=== PATIENT | female | born 1945 | race Caucasian/White ===

== ENCOUNTER 2016-12-18 16:32 | Observation (INO) | payer MEDICARE ==
[~2016-12-18] VITALS: Ht 160 cm; Wt 92.3 kg
[2016-12-18 16:39] VITALS: BP 134/83; PULSE 65; RESP 15; O2SAT 100
--- NOTE | 2016-12-18 16:48 | ED.REPORT ---
HPI-Chest Pain 40 and Over Date of Service Dec 18, 2016 ED Provider: Steven Dobson MD Patient is a 71 year old female with a history of diabetes who presents to the ED complaining of intermittent chest aching for the past 3 days. She denies shortness of breath, diaphoresis, nausea, palpitations or radiating pain. The patient states that the pain gradually came on and is exacerbated with exertion. She describes the pain as a mild ache. Patient was seen at , where she received ASA and was referred to the ED. Nursing Notes Stated Complaint: CHEST PAIN/ SENT FROM URGENT CARE Chief Complaint: Chest Pain Nursing Notes Reviewed: Yes Allergies: Coded Allergies: No Known Allergies (Unverified , 12/18/16) Scheduled Aspirin (Aspirin) 81 Mg Tablet 81 MG PO HS Atenolol (Atenolol) 25 Mg Tablet 25 MG PO DAILY Fluoxetine (Fluoxetine) 20 Mg Capsule 40 MG PO DAILY Glipizide (Glipizide) 5 Mg Tablet 5 MG PO DAILY Lisinopril (Lisinopril) 10 Mg Tablet 10 MG PO DAILY Magnesium Oxide (Magnesium Oxide) 250 Mg Tablet 500 MG PO HS Metformin (Metformin) 500 Mg Tablet 250 MG PO DAILY Omeprazole (Omeprazole) 20 Mg Tablet.dr 20 MG PO HS Simvastatin (Simvastatin) 20 Mg Tablet 20 MG PO HS Trazodone (Trazodone) 100 Mg Tablet 100 MG PO HS General Time Seen by MD: 16:47 Chief Complaint Chest aching Hx Obtained From: Patient Arrived By: Walk-in Sudden in Onset?: No Onset Occurred: 3 days ago Symptom Duration: Intermittent Location: : Substernal Quality: Aching Radiation: : Does not radiate Migration/Movement: Reports: None Severity: Current: Mild Recent Healthcare: Recent doctor visit Risk Factors )( CAD Risk Stratification Diabetes mellitus Family history Hyperlipidemia Smoking (former)No Amphetamine , No Cocaine Risk factors reviewed HEART Score HEART for MACE: Mod index of susp (1), Normal ECG (0), Age 65 or over (2), 1-2 CAD risk factors (1) HEART for MACE Score: 4-7 (mod risk 12%-16.6%) PERC Rule Age 50 or over Past Medical History Past Medical History Reports: Diabetes mellitus Family History CAD Smoking History Former Smoker Social History Other Social History: Good social support, , From out of town, Visiting locally Ambulatory Status Independent Review of Systems Constitutional: Denies: Chills, Fever Respiratory: Denies: Non-productive cough, Shortness of breath Cardiovascular: Reports: Chest pain, Denies: Palpitations GI: Denies: Nausea Musculoskeletal: Denies: Back pain, Extremity pain, Neck pain Skin: Denies Diaphoresis, Denies Itching, Denies Rash Neurologic: Denies: Lightheaded, Numbness, Weakness Complete sys rev & neg: except as marked. Physical Exam Initial Vital Signs Vital Signs (First) Date Time Temp Pulse Resp B/P Pulse Ox O2 Delivery O2 Flow Rate FiO2 12/18/16 16:39 37.1 65 15 134/83 100 Room Air Initial VS: Reviewed General/Constitutional: Awake, Alert, No acute distress Respiratory / Chest: Atraumatic, Breath sounds NL, Breath sounds = bilat, No respiratory distress Cardiovascular: Heart rate NL, Regular rhythm, Heart sounds NL Abdomen: Atraumatic, Soft, Non-tender Lower Extremity / Pelvis / MS: Atraumatic, No edema Skin: Atraumatic, Color NL, No rash, Warm, Dry Neurologic: Oriented X3, Speech NL Psychiatric: Affect NL, Mood NL Head / Eyes: Atraumatic, Normocephalic, PERRL, EOMI Interpretation & Diagnostics Lab Results Interpretation Result Diagram: 12/18/16 1654 12/18/16 1654 Test 12/18/16 16:54 12/18/16 18:50 White Blood Count 7.1th/mm3 (3.8-10.1) Red Blood Count 4.73mil/mm3 (3.90-5.20) Hemoglobin 14.2g/dL (12.0-15.6) Hematocrit 43.3% (35.0-46.0) Mean Corpuscular Volume 91.5fL (81-100) Mean Corpuscular Hemoglobin 30.0pg (27.0-35.0) Mean Corpuscular Hemoglobin Concent 32.8% (32.0-37.0) Red Cell Distribution Width 12.7% (12.3-15.4) Platelet Count 200bil/L (150-400) Neutrophils (%) (Auto) 51.4% (40-74) Lymphocytes (%) (Auto) 33.1% (14-46) Monocytes (%) (Auto) 11.8% (4-12) Eosinophils (%) (Auto) 3.1% (0-5) Basophils (%) (Auto) 0.3% (0-3) Sodium Level 138mEq/L (134-144) Potassium Level 4.7mEq/L (3.5-5.2) Chloride Level 103mEq/L (97-108) Carbon Dioxide Level 20mmol/L (18-29) Blood Urea Nitrogen 18mg/dL (8-27) Creatinine 0.66mg/dL (0.57-1.00) Estimat Glomerular Filtration Rate 127mL/min (>59) Glucose Level 123mg/dL (60-99) Calcium Level 9.5mg/dL (8.5-10.1) Magnesium Level 2.1mg/dL (1.6-2.6) Total Bilirubin 0.4mg/dL (0.0-1.2) Aspartate Amino Transf (AST/SGOT) 19U/L (0-50) Alanine Aminotransferase (ALT/SGPT) 14U/L (0-32) Alkaline Phosphatase 106U/L (25-165) Troponin T < 0.010ug/L (0.0-0.011) Total Protein 6.6g/dL (6.4-8.4) Albumin 4.2g/dL (3.4-5.0) ECG Interpretation Time: 17:13 Interpreted by: ED physician Normal ECG Interpretation: Normal rate (62), Normal sinus rhythm X-Ray Chest Interpretation Chest Xray Interpretation: IMPRESSION: Acute disease is not seen in the upright portable chest. Cause of chest discomfort is not identified. Dictated by: Nasim Jeff M.D. on 12/18/2016 at 17:15 Approved by: Nasim Jeff M.D. on 12/18/2016 at 17:16 View: Portable, 1 view Interpretation / Wet Read by: Interpret - Radiologist Re-Eval/Medical Decision Time of Eval: 18:13 Re-Evaluation/Progress Note: Discussed results and plan to admit. Patient understands and agrees to plan. All questions were addressed. Consultation : Referral / Consult Name: Quentin Kramer MD Consulted With: Hospitalist Call Returned at: 19:20 Traffic Operator: Agrees with eval, Agrees with plan, Accepts admit Counseled Regarding: Diagnosis, Lab results, Need for admission Discharge & Departure Primary Impression: Chest pain Chest pain type: unspecified Qualified Code: R07.9 - Chest pain, unspecified Disposition: ADMITTED TO HOSPITAL Discharge Condition All VS Reviewed: Yes Condition: Stable Scribe Attestation Portions of this note were transcribed by Margareth Crisostomo. I, Dr. Dobson personally performed the history, physical exam and medical decision-making; I reviewed and confirmed the accuracy of the information in the transcribed note. Signed by: Xin Bishop, 12/18/16 Steven Dobson MD Dec 18, 2016 16:48 Zunilda Crisostomo Dec 18, 2016 17:00
[2016-12-18 16:56] LABS: BASOPHILS % (AUTO) 0.3 % (0-3); EOSINOPHILS % (AUTO) 3.1 % (0-5); MONOCYTES % (AUTO) 11.8 % (4-12); Mean Corpuscular Volume 91.5 fL (81-100); NEUTROPHILS % (AUTO) 51.4 % (40-74); Platelet Count 200 bil/L (150-400)
--- NOTE | 2016-12-18 17:18 | DRSVH ---
PROCEDURE: X-RAY CHEST ONE VIEW, PORTABLE ([id number]) INDICATIONS: chest pain TECHNIQUE: One view of the chest was acquired. COMPARISON: None. FINDINGS: Surgical changes and devices: food assembler leads are seen over the chest. Lungs and pleura: No pleural effusions or pneumothorax. Lungs are clear. There is some elevation o f the right hemidiaphragm. Mediastinum: Mediastinal contours appear normal. Heart size is normal. Bones and chest wall: No suspicious bony lesions. Overlying soft tissues appear unremarkable. IMPRESSION: Acute disease is not seen in the upright portable chest. Cause of chest discomfort is not identified. Dictated by: Nasim Jeff M.D. on 12/18/2016 at 17:15 Approved by: Nasim Jeff M.D. on 12/18/2016 at 17:16
[2016-12-18 17:19] LABS: TROPONIN T < 0.010 ug/L (0.0-0.011)
[2016-12-18 17:24] VITALS: BP 115/67; PULSE 64; RESP 16; O2SAT 96
[2016-12-18] MEDS ORDERED: Heparin 25K Unit/500mL 0.45 NS 25,000 UNIT in IV Premix 1 EACH IV SCH (18:20)
[2016-12-18] MEDS ORDERED: Heparin 5,000 Unit/mL Inj IVPUSH PRN (18:20)
[2016-12-18] MEDS ORDERED: Heparin 5,000 Unit/mL Inj IVPUSH ONE (18:20)
[2016-12-18 18:46] LABS: Magnesium 2.1 mg/dL (1.6-2.6)
[2016-12-18 19:10] VITALS: BP 126/60; PULSE 64; RESP 16; O2SAT 96
[2016-12-18] MEDS ORDERED: TRAZ-118 PO (19:13)
[2016-12-18] MEDS ORDERED: ATEN25TA PO (19:13)
[2016-12-18] MEDS ORDERED: FLUO20CA25 PO (19:13)
[2016-12-18] MEDS ORDERED: METF500T4 PO (19:13)
[2016-12-18] MEDS ORDERED: GLPZ5T PO (19:13)
[2016-12-18] MEDS ORDERED: LISI10TA PO (19:13)
[2016-12-18] MEDS ORDERED: SIMV20TA4 PO (19:13)
[2016-12-18] MEDS ORDERED: OMEP20TA86 PO (19:28)
[2016-12-18] MEDS ORDERED: MAGN250T37 PO (19:29)
[2016-12-18] MEDS ORDERED: ASPI-973 PO (19:29)
[2016-12-18] MEDS ORDERED: Polyethylene Glycol (PEG) 17 Gm Powder PO PRN (19:30)
[2016-12-18] MEDS ORDERED: Alum-Mag Hydrox-Simeth 30 mL Suspension PO PRN (19:30)
[2016-12-18] MEDS ORDERED: Ondansetron 2 mg/mL 2 mL Inj IVPUSH PRN (19:30)
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
[2016-12-18 20:17] VITALS: BP 154/77; PULSE 58; RESP 20; O2SAT 98
[2016-12-18] MEDS ORDERED: Famotidine Inj 20 MG in IV Premix 1 EACH IV SCH (20:30)
[2016-12-18] MEDS ORDERED: Glucose 40% Oral Gel 15 Gm Tube PO PRN (20:35)
[2016-12-18 20:46] VITALS: PULSE 59
[2016-12-18] MEDS ORDERED: Dextrose 10% 250 ML IV PRN (20:50)
[2016-12-18 21:55] LABS: APPEARANCE,URINE HAZY (CLEAR,HAZY); COLOR,URINE YELLOW (YELLOW)
[2016-12-18 21:56] LABS: OCCULT BLOOD,URINE NEGATIVE (NEGATIVE); UROBILINOGEN,URINE NORMAL (NORMAL)
[2016-12-18] MEDS: Insulin LISPRO 300 Unit/3 mL Inj SUBQ SCH (22:00)
[2016-12-18] MEDS: Pantoprazole 20 mg ER24 Tablet PO SCH (22:10)
--- NOTE | 2016-12-18 23:31 | NUR ---
Admit note: Pt arrived to the floor in [facility] from ER. While on the gurney in the [place] reported 5/10 chest pain which increased with deep breathing and "feels like a bruise". Declined Morphine, pain subsided on own by the time pt transferred to her bed and has been pain free since. Alert and oriented x3. Tele SR 60s. Plan of care and call light use explained to pt.
[2016-12-19] MEDS ORDERED: Heparin 5,000 Unit/mL Inj SUBQ SCH (00:30)
[2016-12-19] MEDS: Heparin 5,000 Unit/mL Inj SUBQ SCH ×3 (02:24→16:28)
[2016-12-19 02:28] VITALS: BP 127/72; PULSE 60; RESP 18; O2SAT 96
[2016-12-19 05:42] LABS: BASOPHILS % (AUTO) 0.5 % (0-3); EOSINOPHILS % (AUTO) 4.1 % (0-5); Mean Corpuscular Hemoglobin 29.6 pg (27.0-35.0); Mean Corpuscular Volume 91.2 fL (81-100); NEUTROPHILS % (AUTO) 47.7 % (40-74); Platelet Count 154 bil/L (150-400)
[2016-12-19 06:17] LABS: TROPONIN T 0.01 ug/L (0.0-0.011)
[2016-12-19 06:28] LABS: Magnesium 2.1 mg/dL (1.6-2.6)
[2016-12-19 06:50] VITALS: BP 147/70; PULSE 59; RESP 20; O2SAT 96
[2016-12-19] MEDS: Insulin LISPRO 300 Unit/3 mL Inj SUBQ SCH ×4 (07:28→21:32)
[2016-12-19] MEDS ORDERED: Pantoprazole 20 mg ER24 Tablet PO SCH (07:30)
[2016-12-19 10:10] VITALS: PULSE 63
--- NOTE | 2016-12-19 11:30 | NUR ---
Case Management: C[employer] and Medicare Part D pamphlet delivered and explained to patient. Signed original placed in chart. Copy left at bedside. Geraldine Metzger RN
[2016-12-19 13:29] VITALS: BP 148/77; PULSE 62; RESP 18; O2SAT 96
--- NOTE | 2016-12-19 13:37 | NUR ---
off floor pt is transported via [place]C to [place] for stress test.
--- NOTE | 2016-12-19 16:42 | PCM.PNMED ---
Subjective Date of Service Dec 19, 2016 Subjective Patient was seen and examined at bedside today. Patient denies any chest pain, shortness of breath, nausea, vomiting, diarrhea. Patient states that she is feeling improved since her admission. Overnight events: None Exam Vital Signs Vital Sign - Last Date Time Temp Pulse Resp B/P Pulse Ox O2 Delivery O2 Flow Rate FiO2 12/19/16 13:29 36.6 62 18 148/77 96 Room Air Intake and Output 12/18/16 12/18/16 12/19/16 Cumulative From/Thru 15:00 23:00 07:00 12/18/16 16:39 - 12/18/16 22:00 # Voids 1 1 Exam Physical Exam: GEN: Patient was awake, alert, responding appropriately to questions HEENT: Pupils equal round and reactive to light, extraocular eye muscles intact , Neck soft supple, trachea midline, nomocephalic/atraumatic CV: +S1/S2, regular rate and rhythm, no murmurs auscultated Respiratory: CTAB, no wheezes, rales, rhonchi GI: +bowel sounds x4, soft, compressible, nontender to palpation EXT: no clubbing, cyanosis, edema Neuro: Cranial nerves II-XII grossly intact Psych: mood and affect were appropriate IVs and Medications Medications Reviewed: Medications were reviewed in detail Lab and Diagnostics Result Diagram: 12/19/1651412/19/1615 Assessment & Plan Mrs. Sindi Nix is a pleasant 71-year-old woman with a history of non- insulin-dependent using diabetes, increased body weight, and long-standing family history of coronary artery disease, that presented to the emergency department with a three-day history of left-sided intermittent chest pressure without radiation. In the emergency department, initial workup of EKG and troponin did not yield diagnostic results. She was admitted for observation for evaluation and treatment of acute coronary syndrome. Chest pain, acute, present on admission, under evaluation - Patient without history of cardiac disease reported a three-day history of intermittent chest pressure worsened with exertion - HEART score: 3, 0.9 1.7% risk of adverse cardiac event (history moderately suspicious +1, EKG normal +0, age +1, risk factors +1, troponin +0) - EKG: Normal sinus rhythm, heart rate 62, QTC 433, no acute ST T changes noted - Troponins negative 3 - EKG as needed for chest pain - Continue daily aspirin, beta-blockade after stress test completion, and morphine as needed for chest pain or pressure - Resume statin, ACEi therapy - Patient is scheduled for stress test today - TSH 4.160 (within upper limits of normal) Onx-[id number]-[id number] diabetes mellitus, chronic, presumed stable - Home medications reported as: Metformin and glipizide - Holding oral diabetic medications, we will use low-dose correctional scale in- house Hypertension, chronic, presumed stable - Continue home medications of atenolol, lisinopril when appropriate Anxiety, chronic, presumed stable - Continue fluoxetine and trazodone PRN: bowel, fever, pain, nausea GI: Home PPI DVT: Hep q8 Diet: Heart healthy until midnight, nothing by mouth after midnight ( 0000 12/19) Code status: Full code Disposition: Patient is currently admitted for acute onset of chest pain. The patient will undergo a stress test. We will wait the results from the stress test in order to make a further plan. GI Prophylaxis: Proton Pump Inhibitor VTE Prophylaxis: Sub-Q Heparin (Unfractionated) Resuscitation Status: CPR: Attempt Resuscitation Marcia Valencia DO Dec 19, 2016 16:42
--- NOTE | 2016-12-19 16:58 | NUR ---
Social Work-initial assessment/ readiness for discharge: Data:See initial assessment. Pt is a 71 y/o female who was admitted on 12/18/16 for chest pain per H&P. Pt's insurance is [employer] [facility] and PCP is Dr. Marcella MD. EMR reviewed. SW met with pt at bedside, SW role explained. Pt is alert and oriented x3. 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 Pt does not use any DME and drives. Pt has no HH or SNF history. 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 SW discussed DPOA/ advanced directive, pt has completed this, SW encouraged a copy to be brought in. Pt confirms her will provide transport home at discharge. Pt discussed in morning rounds, no concerns from RN or MD regarding pt's capacity for self care, pt has been up independent in her room. SW provided pt with discharge planning checklist and encouraged pt to call with any questions, phone number provided on white board. No anticipated discharge needs. SW will continue to follow if needs arise. Assessment:Pt who is independent at baseline. Plan:Pt to discharge home when medically stable via POV. No anticipated discharge needs. SW will continue to follow if needs arise. DAVID Saldana Addendum: 12/19/16 at 1705 by ETHAN TAVAREZ SS Amended: Links added.
--- NOTE | 2016-12-19 17:22 | DRSVH ---
PROCEDURE: 1 DAY PHARMACOLOGICAL STRESS TEST Rest and pharmacological stress myocardial perfusion SPECT with gated imaging and ejection fraction RADIOPHARMACEUTICAL: 10.2 mCi Tc-99m tetrafosmin IV at rest and 31.2 mCi Tc-99m tetrafosmin IV at pea k effect of pharmacological stress. A afj-une-cnruxvks was performed. INDICATIONS: 71 year-old woman with chest pain. The patient has diabetes, smoking, hypertension, and family history coronary artery disease. Evaluate myocardial ischemia. TECHNIQUE: Radiopharmaceutical was injected at peak stress test, and also at rest. SPECT images wer e obtained. SPECT myocardial perfusion images were displayed in short axis, horizontal long axis, an d vertical long axis views. Gated images were reviewed using [id number] Digital[employer]ANT software. COMPARISON: None. CARDIAC STRESS: The patient started on an exercise stress test using standard Alex protocol. The pa tient exercised for 6 minutes and 33 seconds with functional aerobic impairment (CHIQUIS) +20 and failed to reach maximum predicted heart rate. The stress test was switched to Lexiscan infusion. A pharmacologic stress test was performed under the supervision of an attending staff, using an infus ion of Lexiscan. Hemodynamic data: There is normal blood pressure and heart rate response to pharmacologic stress. Symptoms: The patient denied anginal chest pain. Aminophylline: 100 mg IV EKG: No diagnostic changes of ischemia; no ectopy. FINDINGS: Raw data: There is good myocardial uptake of radiotracer. No significant motion artifacts. Left ventricle function: Gated images demonstrate normal left ventricular wall thickening. No segme ntal wall motion abnormalities. No transient ischemic dilation. Left ventricle resting end diastoli c volume is normal. Left ventricle stress ejection fraction is greater than 70%; normal range is abo ve 45%. Myocardial perfusion: There is normal distribution of activity in the right and left ventricular teresa cardium. No fixed or reversible perfusion defects. IMPRESSION: 1. Normal myocardial perfusion images. 2. Normal left ventricular volume and systolic function. 3. Reduced exercise capacity. The patient failed to reach predicted heart rate on Alex protocol. Th e stress test was switched to Lexiscan infusion. No chest pain or diagnostic EKG changes for ischemia . PQRS ATTESTATIONS: Measure 322 - Is this imaging test primarily performed on a low-risk surgery patient for preoperative evaluation within 30 days preceding their low-risk non-cardiac surgery? Low-risk surgery is defined as cardiac or myocardial infarction less than 1%, including (but not limited to) endoscopic pr ocedures, superficial procedures, cataract surgery, and excisional breast surgery: Answer: No Measure 323 - Is this imaging test performed primarily for the monitoring of an asymptomatic patient who had percutaneous coronary intervention on the visit date or within 2 years of the visit date? An swer: No Measure 324 - Is this imaging test performed primarily for the initial detection and risk assessment on an asymptomatic, low coronary heart disease patient? Low CHD risk definition = clinicians should consider the maximum number of available patient factors used to estimate risk based on [facility] (A TP III criteria), typically age, gender, diabetes, smoking status, and use of blood pressure medicati on, and integrate age appropriate estimates for missing elements, such as LDL or standard blood press ure. Answer: No Dictated by: Rafael Watts M.D. on 12/19/2016 at 17:13 Approved by: Rafael Watts M.D. on 12/19/2016 at 17:20
[2016-12-19] MEDS: Pantoprazole 20 mg ER24 Tablet PO SCH (20:52)
[2016-12-19 21:27] VITALS: BP 145/76; PULSE 63; RESP 18; O2SAT 96
[2016-12-20] MEDS: Heparin 5,000 Unit/mL Inj SUBQ SCH ×3 (01:03→17:04)
[2016-12-20 01:05] VITALS: BP 125/71; PULSE 66; RESP 18; O2SAT 96
[2016-12-20 05:14] VITALS: BP 127/62; PULSE 67; RESP 16; O2SAT 96
--- NOTE | 2016-12-20 05:57 | NUR ---
NOC Activity Pt denies chest pain, sob, n/v or abd discomfort. Telemetry monitoring noted no abnormal rhythm. VSS and has been afebrile. HS meds administered as ordered. Hourly rounding done and pt has slept most of the night.
[2016-12-20 06:35] VITALS: PULSE 68
[2016-12-20] MEDS: Insulin LISPRO 300 Unit/3 mL Inj SUBQ SCH ×3 (07:43→17:03)
[2016-12-20 08:47] VITALS: PULSE 73
[2016-12-20 09:39] VITALS: BP 138/81; PULSE 70; RESP 18; O2SAT 95
--- NOTE | 2016-12-20 11:36 | NUR ---
Refusal of Medications: Patient refused prophylactic Heparin inj this am. Educated on risk of blood clots, encouraged to be OOB and ambulating. Also, refusing SS insulin coverage. Education of insulin and diabetes provided. Patient accepting of information provided.
--- NOTE | 2016-12-20 11:57 | NUR ---
Social Work-discharge: Data:EMR reviewed. Pt is on day 2 of hospitalization for chest pain per H&P. Pt is medically stable for discharge. Pt has been up independent at baseline. No discharge needs identified. All updated and agreeable to plan. Assessment:Pt who is independent at baseline. Plan:Pt to discharge home today via POV. No discharge needs identified. All updated and agreeable to plan. DAVID Saldana
[2016-12-20 16:40] VITALS: BP 145/86; PULSE 71; RESP 18; O2SAT 98
--- NOTE | 2016-12-20 18:18 | PCM.DIMED ---
Discharge Instructions Date of Service Dec 20, 2016 Dates of Hospitalization Dec 18, 2016 at 20:03 Discharge Diagnosis Discharge Diagnosis Chest pain not cardiac related Zyv-leyocsj-aanrzrdcp diabetes Hypertension Anxiety Medication Instructions Additional med instructions No additional medications are needed Test Results Test Results Your echocardiogram showed that your ejection fraction was normal and your valves looked normal however he did have some minor calcifications on one of your valves which is common to have an your age group. But overall the echocardiogram was unremarkable Your stress test was also normal: PROCEDURE: 1 DAY PHARMACOLOGICAL STRESS TEST IMPRESSION: 1. Normal myocardial perfusion images. 2. Normal left ventricular volume and systolic function. 3. Reduced exercise capacity. The patient failed to reach predicted heart rate on Alex protocol. The stress test was switched to Lexiscan infusion. No chest pain or diagnostic EKG changes for ischemia. Dictated by: Rafael Watts M.D. on 12/19/2016 at 17:13 Approved by: Rafael Watts M.D. on 12/19/2016 at 17:20 Diet Discharge Diet: Heart Healthy Activity Discharge Activity: No restrictions Call your provider Call your provider for: Shortness of breath, Chest pain, Weakness (unilateral) Patient Instructions Follow-up plan Please follow up in the next 1-2 weeks with a primary care provider. At this time your cardiac workup has been negative but it is recommended that he follow-up with a primary care physician or a java performance engineer in order to monitor you and have baseline records of your heart and overall health. It is encouraged that you continue to eat healthier by adding more lean protein and vegetables to her diet and walk 20 minutes a day Follow-up with PCP in: 2 weeks (please follow up with a primary care provider within the next 1-2 weeks) Marcia Valencia DO Dec 20, 2016 18:18
--- NOTE | 2016-12-20 18:24 | PCM.DC.MED ---
Discharge Summary Date of Service Dec 20, 2016 Dates of Hospitalization Date of Hospital Admission Dec 18, 2016 at 20:03 Date of Discharge: Dec 20, 2016 Providers: Admitting Physician: Quentin Kramer MD Primary Care Physician: Tomy Attending Physician: Marcia Valencia DO Diagnosis at Time of Discharge Diagnosis at Time of Discharge Chest pain not cardiac related Jue-ocqtqif-lruzyegfa diabetes Hypertension Anxiety Procedures Cardiac Echo Impression The official echo report was not available during the time of this discharge however after speaking with Dr. Vázquez the results were as follows: Echo showed EF normal No valvular pathology Mild calcification on one of the valves Overall echo was normal PROCEDURE: 1 DAY PHARMACOLOGICAL STRESS TEST IMPRESSION: 1. Normal myocardial perfusion images. 2. Normal left ventricular volume and systolic function. 3. Reduced exercise capacity. The patient failed to reach predicted heart rate on Alex protocol. The stress test was switched to Lexiscan infusion. No chest pain or diagnostic EKG changes for ischemia. Dictated by: Rafael Watts M.D. on 12/19/2016 at 17:13 Approved by: Rafael Watts M.D. on 12/19/2016 at 17:20 Brief History Mrs. Sindi Nix is a pleasant 71-year-old woman with a history of non- insulin-dependent using diabetes, increased body weight, and long-standing family history of coronary artery disease, that presented to the emergency department with a three-day history of left-sided intermittent chest pressure without radiation. In the emergency department, initial workup of EKG and troponin did not yield diagnostic results. She was admitted for observation for evaluation and treatment of acute coronary syndrome. The patient was admitted for chest pain rule out in her troponins were negative 3, the patient's echo showed her EF was within normal limits and no significant valvular pathology however she did have some mild calcifications on one of her valves. I spoke with with Dr. Watts who performed the patient's cardiac stress test and he stated that the patient's stress test was normal. The patient does have a history of anxiety and this may have been related to anxiety. However the patient was counseled on having good eating habits and increasing her protein intake and vegetable intake and daily exercise such as walking for 20 minutes. The patient is currently traveling with her in an and so they do not have a stable location for follow-up. The patient was recommended to follow-up with her primary care physician and also once she returns to her home area that she should establish with a blow molding machine tender in order to have a baseline test and information. The patient is being discharged home in stable condition. Hospital Course Mrs. Sindi Nix is a pleasant 71-year-old woman with a history of non- insulin-dependent using diabetes, increased body weight, and long-standing family history of coronary artery disease, that presented to the emergency department with a three-day history of left-sided intermittent chest pressure without radiation. In the emergency department, initial workup of EKG and troponin did not yield diagnostic results. She was admitted for observation for evaluation and treatment of acute coronary syndrome. Chest pain, acute, present on admission, under evaluation - Patient without history of cardiac disease reported a three-day history of intermittent chest pressure worsened with exertion - HEART score: 3, 0.9 1.7% risk of adverse cardiac event (history moderately suspicious +1, EKG normal +0, age +1, risk factors +1, troponin +0) - EKG: Normal sinus rhythm, heart rate 62, QTC 433, no acute ST T changes noted - Troponins negative 3 - EKG as needed for chest pain - Continue daily aspirin, beta-blockade after stress test completion, and morphine as needed for chest pain or pressure - Resume statin, ACEi therapy - Patient is scheduled for stress test today - TSH 4.160 (within upper limits of normal) Jfw-khlzugi-fbxzvxxch diabetes mellitus, chronic, presumed stable - Home medications reported as: Metformin and glipizide - Holding oral diabetic medications, we will use low-dose correctional scale in- house Hypertension, chronic, presumed stable - Continue home medications of atenolol, lisinopril when appropriate Anxiety, chronic, presumed stable - Continue fluoxetine and trazodone PRN: bowel, fever, pain, nausea GI: Home PPI DVT: Hep q8 Diet: Heart healthy until midnight, nothing by mouth after midnight ( 0000 12/19) Code status: Full code Disposition: Patient is currently admitted for acute onset of chest pain. The patient will undergo a stress test. We will wait the results from the stress test in order to make a further plan. Exam Vital Signs (Last) Date Time Temp Pulse Resp B/P Pulse Ox O2 Delivery O2 Flow Rate FiO2 12/20/16 16:40 36.9 71 18 145/86 98 Room Air Exam Physical Exam: GEN: Patient was awake, alert, responding appropriately to questions HEENT: Pupils equal round and reactive to light, extraocular eye muscles intact , Neck soft supple, trachea midline, nomocephalic/atraumatic CV: +S1/S2, regular rate and rhythm, no murmurs auscultated Respiratory: CTAB, no wheezes, rales, rhonchi GI: +bowel sounds x4, soft, compressible, nontender to palpation EXT: no clubbing, cyanosis, edema Neuro: Cranial nerves II-XII grossly intact Psych: mood and affect were appropriate Test 12/18/16 16:54 12/18/16 18:50 12/18/16 20:49 12/19/16 05:15 Total Bilirubin 0.4mg/dL (0.0-1.2) Aspartate Amino Transf (AST/SGOT) 19U/L (0-50) Alanine Aminotransferase (ALT/SGPT) 14U/L (0-32) Alkaline Phosphatase 106U/L (25-165) Total Protein 6.6g/dL (6.4-8.4) Albumin 4.2g/dL (3.4-5.0) Hold Urine Received (Received) Urine Color Yellow (YELLOW) Urine Appearance Hazy (CLEAR,HAZY) Urine pH 6.0 (5.0-8.0) Urine Specific Humphreys 1.010 (1.003-1.035) Urine Protein Negativemg/dL (NEG,TRACE) Urine Glucose (UA) Negativemg/dL (NEGATIVE) Urine Ketones Negativemg/dL (NEGATIVE) Urine Occult Blood Negative (NEGATIVE) Urine Nitrite Negative (NEGATIVE) Urine Bilirubin Negative (NEGATIVE) Urine Urobilinogen Normalmg/dL (NORMAL) Urine Leukocyte Esterase Negative (NEGATIVE) Urine RBC 0-2/hpf (0-2) Urine WBC 0-5/hpf (0-5) Urine Epithelial Cells Occasional/hpf (NONE-MOD) Urine Crystals None seen (NONE SEEN) Urine Bacteria Many/hpf (NONE-FEW) Urine Hyaline Casts None/lpf (NONE) Urine Granular Casts None seen (NONE SEEN) Urine Waxy Casts None seen (NONE SEEN) Urine Red Blood Cell Casts None seen (NONE SEEN) Urine White Blood Cell Casts None seen (NONE SEEN) Urine Mucus None seen (None Seen) Urine Trichomonas None seen (NONE SEEN) Urine Yeast None (NONE SEEN) Urinalysis Comment None Urine Culture Reflexed Indicated White Blood Count 6.3th/mm3 (3.8-10.1) Red Blood Count 4.67mil/mm3 (3.90-5.20) Hemoglobin 13.8g/dL (12.0-15.6) Hematocrit 42.6% (35.0-46.0) Mean Corpuscular Volume 91.2fL (81-100) Mean Corpuscular Hemoglobin 29.6pg (27.0-35.0) Mean Corpuscular Hemoglobin Concent 32.4% (32.0-37.0) Red Cell Distribution Width 12.7% (12.3-15.4) Platelet Count 154bil/L (150-400) Neutrophils (%) (Auto) 47.7% (40-74) Lymphocytes (%) (Auto) 35.4% (14-46) Monocytes (%) (Auto) 12.0% (4-12) Eosinophils (%) (Auto) 4.1% (0-5) Basophils (%) (Auto) 0.5% (0-3) Activated Partial Thromboplast Time 26.1sec (22.8-33.0) Sodium Level 140mEq/L (134-144) Potassium Level 4.4mEq/L (3.5-5.2) Chloride Level 105mEq/L (97-108) Carbon Dioxide Level 21mmol/L (18-29) Blood Urea Nitrogen 22mg/dL (8-27) Creatinine 0.84mg/dL (0.57-1.00) Estimat Glomerular Filtration Rate 96mL/min (>59) Glucose Level 118mg/dL (60-99) Calcium Level 9.4mg/dL (8.5-10.1) Magnesium Level 2.1mg/dL (1.6-2.6) Troponin T 0.010ug/L (0.0-0.011) Thyroid Stimulating Hormone (TSH) 4.160uIU/mL (0.450-4.500) Free Thyroxine 1.11ng/dL (0.82-1.77) Discharge Medications Discharge Medications Aspirin (Aspirin) 81 Mg Tablet 81 MG PO HS (Reported) Fluoxetine (Fluoxetine) 20 Mg Capsule 40 MG PO DAILY (Reported) Glipizide (Glipizide) 5 Mg Tablet 5 MG PO DAILY (Reported) Lisinopril (Lisinopril) 10 Mg Tablet 10 MG PO DAILY (Reported) Magnesium Oxide (Magnesium Oxide) 250 Mg Tablet 500 MG PO HS (Reported) Metformin (Metformin) 500 Mg Tablet 250 MG PO DAILY (Reported) Omeprazole (Omeprazole) 20 Mg Tablet.dr 20 MG PO HS (Reported) Simvastatin (Simvastatin) 20 Mg Tablet 20 MG PO HS (Reported) Trazodone (Trazodone) 100 Mg Tablet 100 MG PO HS (Reported) Additional med instructions No additional medications are needed Followup Plan Follow-up plan Please follow up in the next 1-2 weeks with a primary care provider. At this time your cardiac workup has been negative but it is recommended that he follow-up with a primary care physician or a blow molding machine tender in order to monitor you and have baseline records of your heart and overall health. It is encouraged that you continue to eat healthier by adding more lean protein and vegetables to her diet and walk 20 minutes a day Discharge Diet: Heart Healthy Discharge Activity: No restrictions Follow-up with PCP in: 2 weeks (please follow up with a primary care provider within the next 1-2 weeks) Time spent Greater than 35 minutes Marcia Valencia DO Dec 20, 2016 18:24
--- NOTE | 2016-12-20 19:05 | NUR ---
Discharge: Patient discharged to home @ approx 1900. IV d/c'd intact, telemetry removed, night monitor notified. Personal belongings sent home with patient. Release of Information filled out for information to be sent to PCP in [place]. Reviewed home medication list, d/c instructions, and follow up appointments. Verbalized understanding. Escorted to main entrance via wheelchair accompanied by COMMERCIAL PROJECT MANAGER.
--- NOTE | 2016-12-20 21:32 | DRSVH ---
[facility] [address] [place] [address] Echocardiogram Report Name: SUNNY HIGH Date: Height: 63 in Hospital Exam Location: [facility] Weight: 203 lb Gender: Female BSA: 1.9 m2 : 1945 Age: 71 yrs BP: 138/81 m mHg Reason For Study: Chest pain Ordering Physician: Joel Olmedo Performed By: Adams Duval Referring Physician: JADA GAFFNEY Interpretation Summary The left ventricle is normal in size, wall thickness, and systolic function without any focal wall motion abnormalities. The ejection fraction is estimated to be 60-65%. Assessment of diastolic parameters indicates a relaxation abnormality of the left ventricle, consistent with normal filling pressures. The right ventricle grossly appears normal in size with probable normal systolic function. Pulmonary artery pressures cannot be estimated because of the lack of a measurable TR jet velocity. The left atrium grossly appears normal in size. There is no significant valvular heart disease. The ascending aorta is mildly enlarged. Procedure: A two-dimensional transthoracic echocardiogram with color flow and Doppler was performed. The study quality was technically adequate. A contrast injection of Definity was performed to improve assessment of LV function. There is no prior echocardiogram noted for this patient. The patient was in normal sinus rhythm during the exam. Left Ventricle: The left ventricle is normal in size, wall thickness, and systolic function without any focal wall motion abnormalities. The ejection fraction is estimated to be 60-65%. Assessment of diastolic parameters indicates a relaxation abnormality of the left ventricle, consistent with normal filling pressures. Right Ventricle: The right ventricle grossly appears normal in size with probable normal systolic function. Atria: The left atrium grossly appears normal in size. The right atrium grossly appears normal in size. The interatrial septum is intact with no evidence for an atrial septal defect. Mitral Valve: The mitral valve leaflets are slightly calcified. There is no mitral regurgitation noted. Aortic Valve: The aortic valve is grossly normal. No aortic regurgitation is present. Tricuspid Valve: The tricuspid valve is not well visualized, but is grossly normal. Pulmonary artery pressures cannot be estimated because of the lack of a measurable TR jet velocity. Pulmonic Valve: The pulmonic valve is not well visualized. There is a trace or physiologic amount of pulmonic regurgitation. There is no significant valvular heart disease. Great Vessels: The aortic root is normal size. The ascending aorta is mildly enlarged. The pulmonary artery is normal size. The IVC is of normal diameter and collapses greater than 50% with a sniff. This suggests a low right atrial pressure of 3 mm Hg. Pericardium/ Pleura There is no pericardial effusion. There is no pleural effusion. MMode/2D Measurements & Calculations LVIDd: 4.1 cm LA A4 area LVOT diam: 2.2 cm LV luke. diameter/BSA LVIDs: 2.9 cm Ao root diam (cm/m^2): 2.1 FS: 30.3 % EPSS: 0.50 cm LA length asc Aorta Diam IVSd: 0.86 cm (vol): 5.5 cm LVPWd: 1.0 cm Ao Arch Diam (Prox Trans): 2.8 cm LV sys. diameter/BSA (cm/m^2): 1.5 Doppler Measurements & Calculations Ao V2 max: 115.6 cm/secMV E max dann MV E/A: 0.71 PA V2 max Ao max P.3 mmHg : 63.6 cm/sec Med Peak E' Dann : 64.9 cm/sec Ao mean P.9 mmHg MV A max dann PA mean PG LVOT Max Dann : 89.3 cm/sec E/E' med: 12.9 : 0.94 mmHg : 87.2 cm/sec Lat Peak E' Dann DEEPALI(I,D): 3.2 cm E/E' lat: 8.6 sev ratio: 0.85 E/e' average MV dec time: 0.28 sec Ao V2 mean LV V1 max PG PA V2 mean : 82.0 cm/sec : 45.8 cm/sec Ao V2 VTI: 21.2 cmLV V1 VTI: 18.1 cm PA pr(Accel) : 20.8 mmHg DEEPALI(V,D): 2.8 cm2 DEEPALI indexed to BSA (cm^2/m^2): 1.6 Reading Physician:JENNIFER
== END 2016-12-20 18:58 | disposition home or self-care (01) ==
LOC: SED 16:32 → MPC 20:03
PROVIDERS: ADMIT Hospitalist; ATTEND Neuromusculoskeletal Medicine & OMM
DX: R07.89 Other chest pain (principal); E11.9 Type 2 diabetes mellitus without complications; I10 Essential (primary) hypertension; F41.9 Anxiety disorder, unspecified; Z87.891 Personal history of nicotine dependence; Z79.84 Long term (current) use of oral hypoglycemic drugs; Z79.82 Long term (current) use of aspirin
CPT/HCPCS: 36415; 71010; 78452; 80048; 80053; 81000; 83735; 84439; 84443; 84484; 85025; 85730; 87086; 87088; 87186; 93005; 93017; 96374; 99285; A9502; C8929; G0378; J1644; J2785; Q9957